=== PATIENT | female | born 1975 | race American Indian/Alaskan Native ===

== ENCOUNTER 2017-09-05 23:45 | Emergency (ER) | payer OTHER ==
[2017-09-06 04:08] LABS: Hematocrit 26.7 % (30.3-42.9); Hemoglobin 8.3 gm/dl (10.1-14.3); Mean Corpuscular HGB Conc 31 % (30-34); Mean Corpuscular Volume 67 fl (79-97); Platelet Count 297 K/mm3 (140-440); Red Blood Count 3.97 M/mm3 (3.65-5.03); Red Cell Distribution Width 19.8 % (13.2-15.2)
[2017-09-06 04:09] LABS: Mean Corpuscular Hemoglobin 21 pg (28-32)
[2017-09-06 04:28] LABS: Alanine Aminotransferase 15 units/L (7-56); Albumin 3.9 g/dL (3.9-5); BUN/Creatinine Ratio 20; Blood Urea Nitrogen 14 mg/dL (7-17); Hemolysis Index 5
[2017-09-06 04:49] LABS: Band Neutrophils # (Manual) 0.1 K/mm3; Basophils % (Manual) 0 % (0.0-1.8); Total Cells Counted 100
[2017-09-06 04:50] LABS: Hypochromasia 2+; Platelet Estimate Consistent w Auto
[2017-09-06 07:32] LABS: Bacteria,Urine 2+ /HPF (Negative); Bilirubin,Urine NEG (Negative); Blood,Urine MOD (Negative); Nitrite,Urine POS (Negative); Urobilinogen,Urine < 2.0 mg/dL (<2.0)
[2017-09-06 07:33] LABS: RBC,Urine > 182.0 /HPF (0.0-6.0)
[2017-09-06 07:34] LABS: WBC,Urine > 182.0 /HPF (0.0-6.0)
[2017-09-06 07:35] LABS: Color,Urine Amber (Yellow); HCG Qualitative,Urine Negative (Negative)
[2017-09-06] MEDS ORDERED: NACL 0.9% 1000 ML 1,000 ML IV ONE (09:37)
[2017-09-06] MEDS ORDERED: ROCEPHIN/NS 1 GM/50 ML 1 GM/50 ML BAG IV ONE (09:38)
--- NOTE | 2017-09-06 10:44 | Ultrasound Report ---
ULTRASOUND RENAL BILATERAL HISTORY: Flank pain. TECHNIQUE: transabdominal ultrasound with color Doppler interrogation. FINDINGS: Scans of the kidneys show normal renal contours. There is normal central calyceal clustering and good preservation of the cortical thickness. There is no evidence of mass or hydronephrosis. The views of the bladder and the region of the ureters appear normal. IMPRESSION: Unremarkable renal ultrasound.
[2017-09-06] MEDS ORDERED: TORADOL ONE (11:14)
[2017-09-06] MEDS ORDERED: TORADOL IV ONE (11:15)
[2017-09-06] MEDS ORDERED: cefTRIAXone 1 GM in NACL 0.9% 20 ML IV ONE (11:30)
--- NOTE | 2017-09-06 11:47 | Emergency Department Report ---
ED General Adult HPI - General Chief complaint: Urogenital-Female Stated complaint: PAINFUL URINATION Time Seen by Provider: 09/06/17 11:02 Source: patient Mode of arrival: Ambulatory Limitations: No Limitations - History of Present Illness Initial comments: Patient complains of right flank pain, dysuria or frequency. She states that she has had several urinary tract infections before but none for 2 years. She' s never had an ultrasound for prior workup. She denies nausea vomiting fever or chills. She does not have a primary care physician. -: Gradual, days(s) Location: right (flank) Quality: aching Consistency: intermittent, now resolved Improves with: none Worsens with: none Associated Symptoms: denies other symptoms Treatments Prior to Arrival: none - Related Data Previous Rx's Medication Instructions Recorded Last Taken Type Cefuroxime [Ceftin] 250 mg PO Q12H #20 tablet 09/06/17 Unknown Rx Allergies Allergy/AdvReac Type Severity Reaction Status Date / Time No Known Allergies Allergy Unverified 09/06/17 03:31 ED Review of Systems ROS: Stated complaint: PAINFUL URINATION Other details as noted in HPI Constitutional: denies: chills, fever Eyes: denies: eye pain, eye discharge, vision change ENT: denies: ear pain, throat pain Respiratory: denies: cough, shortness of breath, wheezing Cardiovascular: denies: chest pain, palpitations Endocrine: no symptoms reported Gastrointestinal: denies: abdominal pain, nausea, diarrhea Genitourinary: urgency, dysuria, frequency, hematuria. denies: discharge Musculoskeletal: denies: back pain, joint swelling, arthralgia Skin: denies: rash, lesions Neurological: denies: headache, weakness, paresthesias Psychiatric: denies: anxiety, depression Hematological/Lymphatic: denies: easy bleeding, easy bruising ED Past Medical Hx - Past Medical History Previous Medical History?: No - Surgical History Past Surgical History?: Yes Additional Surgical History: - Social History Smoking Status: Never Smoker Substance Use Type: None - Medications Home Medications: Home Medications Medication Instructions Recorded Confirmed Last Taken Type Cefuroxime [Ceftin] 250 mg PO Q12H #20 tablet 09/06/17 Unknown Rx ED Physical Exam - General Limitations: No Limitations General appearance: alert, in no apparent distress - Head Head exam: Present: atraumatic, normocephalic - Eye Eye exam: Present: normal appearance. Absent: scleral icterus - ENT ENT exam: Present: normal exam, mucous membranes moist - Neck Neck exam: Present: normal inspection - Respiratory Respiratory exam: Present: normal lung sounds bilaterally. Absent: respiratory distress - Cardiovascular Cardiovascular Exam: Present: regular rate, normal rhythm. Absent: systolic murmur, diastolic murmur, rubs, gallop - GI/Abdominal GI/Abdominal exam: Present: soft, normal bowel sounds. Absent: distended, tenderness, guarding, rebound, rigid - Extremities Exam Extremities exam: Present: normal inspection - Back Exam Back exam: Present: normal inspection - Neurological Exam Neurological exam: Present: alert, oriented X3, CN II-XII intact. Absent: motor sensory deficit - Psychiatric Psychiatric exam: Present: normal affect, normal mood - Skin Skin exam: Present: warm, dry, intact, normal color. Absent: rash ED Course Vital Signs 09/06/17 09/06/17 09/06/17 03:32 07:59 09:58 Temperature 98.5 F 98.2 F Pulse Rate 78 81 Respiratory 19 16 Rate Blood Pressure 159/88 Blood Pressure 139/95 [Right] O2 Sat by Pulse 100 100 100 Oximetry 09/06/17 09/06/17 09/06/17 10:00 10:30 11:06 Temperature Pulse Rate Respiratory 16 Rate Blood Pressure 133/79 132/88 Blood Pressure [Right] O2 Sat by Pulse 100 100 100 Oximetry 09/06/17 11:18 Temperature Pulse Rate 72 Respiratory 16 Rate Blood Pressure Blood Pressure 112/88 [Right] O2 Sat by Pulse 100 Oximetry - Reevaluation(s) Reevaluation #1: She given IV fluid and ceftriaxone. Appropriate for outpatient management. Emphasized importance of follow-up on the urine culture. 09/06/17 12:00 ED Medical Decision Making - Lab Data Result diagrams: 09/06/17 03:49 09/06/17 03:49 Laboratory Results - last 24 hr 09/06/17 09/06/17 09/06/17 03:49 03:49 Unknown WBC 5.9 RBC 3.97 Hgb 8.3 L Hct 26.7 L MCV 67 L MCH 21 L MCHC 31 RDW 19.8 H Plt Count 297 Add Manual Diff Complete Total Counted 100 Seg Neuts % (Manual) 61.0 Band Neutrophils % 1.0 Lymphocytes % (Manual) 33.0 Reactive Lymphs % (Man) 0 Monocytes % (Manual) 2.0 Eosinophils % (Manual) 3.0 Basophils % (Manual) 0 Metamyelocytes % 0 Myelocytes % 0 Promyelocytes % 0 Blast Cells % 0 Nucleated RBC % Not Reportable Seg Neutrophils # Man 3.6 Band Neutrophils # 0.1 Lymphocytes # (Manual) 1.9 Abs React Lymphs (Man) 0.0 Monocytes # (Manual) 0.1 Eosinophils # (Manual) 0.2 Basophils # (Manual) 0.0 Metamyelocytes # 0.0 Myelocytes # 0.0 Promyelocytes # 0.0 Blast Cells # 0.0 WBC Morphology Not Reportable Hypersegmented Neuts Not Reportable Hyposegmented Neuts Not Reportable Hypogranular Neuts Not Reportable Smudge Cells Not Reportable Toxic Granulation Not Reportable Toxic Vacuolation Not Reportable Dohle Bodies Not Reportable Pelger-Huet Anomaly Not Reportable Evonne Rods Not Reportable Platelet Estimate Consistent w auto Clumped Platelets Not Reportable Plt Clumps, EDTA Not Reportable Large Platelets Not Reportable Giant Platelets Not Reportable Platelet Satelliting Not Reportable Plt Morphology Comment Not Reportable RBC Morphology Not Reportable Dimorphic RBCs Not Reportable Polychromasia Not Reportable Hypochromasia 2+ Poikilocytosis Not Reportable Anisocytosis Not Reportable Microcytosis 1+ Macrocytosis Not Reportable Spherocytes Not Reportable Pappenheimer Bodies Not Reportable Sickle Cells Not Reportable Target Cells Not Reportable Tear Drop Cells Not Reportable Ovalocytes Not Reportable Helmet Cells Not Reportable [place] Bodies Not Reportable Paradis Rings Not Reportable Shin Cells Not Reportable Bite Cells Not Reportable Crenated Cell Not Reportable Elliptocytes Not Reportable Acanthocytes (Spur) Not Reportable Rouleaux Not Reportable Hemoglobin C Crystals Not Reportable Schistocytes Not Reportable Malaria parasites Not Reportable Osiel Bodies Not Reportable Hem Pathologist Commnt No Sodium 139 Potassium 3.9 Chloride 102.8 Carbon Dioxide 21 L Anion Gap 19 BUN 14 Creatinine 0.7 Estimated GFR > 60 BUN/Creatinine Ratio 20 Glucose 104 H Calcium 9.0 Total Bilirubin 0.20 AST 20 ALT 15 Alkaline Phosphatase 77 Total Protein 7.5 Albumin 3.9 Albumin/Globulin Ratio 1.1 Urine Color [place] Urine Turbidity Clear Urine pH 6.0 Ur Specific [place] 1.015 Urine Protein 100 mg/dl Urine Glucose (UA) Neg Urine Ketones Neg Urine Blood Mod Urine Nitrite Pos Urine Bilirubin Neg Urine Urobilinogen < 2.0 Ur Leukocyte Esterase Neg Urine WBC (Auto) > 182.0 H Urine RBC (Auto) > 182.0 Urine Bacteria (Auto) 2+ Urine HCG, Qual Negative Critical care attestation.: If time is entered above; I have spent that time in minutes in the direct care of this critically ill patient, excluding procedure time. ED Disposition Clinical Impression: Acute pyelonephritis, Microcytic anemia Disposition: TO HOME OR SELFCARE Is pt being admited?: No Does the pt Need Aspirin: No Condition: Stable Instructions: Urinary Tract Infection in Women (ED), Iron Deficiency Anemia (ED ) Additional Instructions: Follow-up on the urine culture in 2-3 days. Also I'm going to start you on iron for your anemia. See referral for primary care clinic and strip tank tender. Return nausea vomiting fever or chills or any increase pain as needed. Prescriptions: Cefuroxime [Ceftin] 250 mg PO Q12H #20 tablet Referrals: JUAN ALVAREZ MD [Staff Physician] - 3-5 Days [facility] [Provider Group] - 2-3 Days Time of Disposition: 12:01
[2017-09-06 12:10] VITALS: BP 134/80
== END 2017-09-06 12:42 | disposition home or self-care (01) ==
LOC: ED 23:45
DX: N10 Acute pyelonephritis (principal); D50.9 Iron deficiency anemia, unspecified
CPT/HCPCS: 36415; 76770; 80053; 81001; 81025; 85007; 85025; 87086; 96361; 96374; 96375; 99284; J0696; J1885; J7030; 87076; 87186

== ENCOUNTER 2018-05-24 11:56 | Emergency (ER) | payer SELFPAY ==
[2018-05-24 13:01] VITALS: BP 138/83
[2018-05-24] MEDS ORDERED: TORADOL IM ONE (14:37)
[2018-05-24] MEDS ORDERED: MORPHINE IM ONE (14:37)
[2018-05-24] MEDS ORDERED: ROBAXIN PO ONE (14:37)
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
== END 2018-05-24 16:22 | disposition home or self-care (01) ==
LOC: ED 11:56
DX: M54.6 Pain in thoracic spine (principal); M25.511 Pain in right shoulder
CPT/HCPCS: 96372; 99282; J1885; J2270